=== PATIENT | female | born 1975 | race Caucasian/White ===

== ENCOUNTER 2016-10-13 13:57 | Emergency (ER) | payer OTHER ==
[2016-10-13] VITALS (13 sets, daily range): BP systolic 122–154; BP diastolic 73–93; PULSE 70–88; TEMP 36.9–37.4; O2SAT 96–100; Ht 157.5 cm; Wt 94.8 kg
[~2016-10-13] VITALS: Ht 157.5 cm; Wt 94.8 kg
--- NOTE | 2016-10-13 14:25 | EMERGENCY ROOM VISIT NOTE ---
History Report prepared by Lacey: Jemma Krause Under the Supervision of: Oliver KochO. First contact with patient: 14:06 Chief Complaint: ABNORMAL LABS Stated Complaint: LAB LEVEL EVAL. History of Present Illness The patient is a 41 year old female who presents to the Emergency Room with complaints of an episode of low hemoglobin beginning yesterday. The patient states that she has not been feeling well recently and has had dizziness, lightheadedness, difficulty concentrating, weakness, and some shortness of breath with walking. She reports that she got blood work done yesterday after seeing her doctor and today they called to tell her it was 5.9. She notes that her doctor called her from [place] where she lives and told her she needed to come into the ED immediately despite being on vacation. The patient denies any rectal bleeding, dark stools, chest pain, fevers, cold, abdominal pain, and bloody stools. She notes that she has very heavy periods and is scheduled to get hers at the end of this week. Source of History: patient Onset: yesterday Position: other (global) Symptom Intensity: 5.9 Quality: other (low hemoglobin) Timing: constant Associated Symptoms: + SOB, + weakness, No fevers, No chest pain, No abdominal pain Note: Pt complains of dizziness, lightheadedness, difficulty concentrating. The patient denies any rectal bleeding, dark stools, cold, and bloody stools. Review of Systems See HPI for pertinent positives & negatives. A total of 10 systems reviewed and were otherwise negative. Past Medical & Surgical Medical Problems: (1) No Known Active Medical Problems Family History No pertinent family history stated. Social History Marital Status: Housing Status: lives with family Occupation Status: employed Current/Historical Medications Scheduled Omeprazole (Prilosec), 20 MG PO HS Multivit-Min W/Fe-Fa ( And Iron), 1 TAB PO BID Allergies Coded Allergies: NO KNOWN DRUG ALLERGIES (Verified Allergy, Unknown, none, 10/13/16) No Known Food Allergy (Verified Allergy, Unknown, none, 10/13/16) Physical Exam Vital Signs Date Time Temp Pulse Resp B/P (MAP) Pulse Ox O2 Delivery O2 Flow Rate FiO2 10/13/16 19:45 37.0 78 18 142/93 98 10/13/16 19:00 129/82 10/13/16 18:45 37.4 85 18 154/86 99 10/13/16 18:14 37.1 85 20 136/83 98 10/13/16 17:44 37.3 88 20 129/78 99 10/13/16 17:00 Room Air 10/13/16 16:54 98 20 129/86 99 10/13/16 16:20 100 Room Air 10/13/16 14:36 86 10/13/16 14:05 36.7 98 18 145/88 100 Room Air Physical Exam GENERAL: Patient is awake, alert, and in no acute distress. Patient is resting comfortably and showing no signs of anxiety EYES: The conjunctivae are clear. The pupils are round and reactive. EARS, NOSE, MOUTH AND THROAT: The nose is without any evidence of any deformity. Mucous membranes are moist tongue is midline NECK: The neck is nontender and supple. RESPIRATORY: Normal respiratory effort is noted there is no evidence of wheezing rhonchi or rales CARDIOVASCULAR: Regular rate and rhythm noted there no murmurs rubs or gallops normal S1 normal S2 GASTROINTESTINAL: The abdomen is soft. Bowel sounds are present in all quadrants. Abdomen is nontender MUSCULOSKELETAL/EXTREMITIES: There is no evidence of gross deformity full range of motion is noted in the hips and shoulders SKIN: There is no obvious evidence of any rash. There are no petechiae, pallor or cyanosis noted. NEUROLOGIC: Patient is awake alert and oriented x3 Medical Decision & Procedures Laboratory Results 10/13/16 14:24 Red Blood Count 4.49, Mean Corpuscular Volume 54.8, Mean Corpuscular Hemoglobin 13.4, Mean Corpuscular Hemoglobin Concent 24.4, Neutrophils (%) (Auto) 56.1, Lymphocytes (%) (Auto) 35.5, Monocytes (%) (Auto) 6.0, Eosinophils (%) (Auto) 1.6, Basophils (%) (Auto) 0.6, Neutrophils # (Auto) 4.57, Lymphocytes # (Auto) 2.89, Monocytes # (Auto) 0.49, Eosinophils # (Auto) 0.13, Basophils # (Auto) 0.05 10/13/16 14:24 Test 10/13/16 14:24 10/13/16 14:30 10/13/16 14:35 10/13/16 16:14 White Blood Count 8.15 K/uL (4.8-10.8) Red Blood Count 4.49 M/uL (4.2-5.4) Hemoglobin 6.0 g/dL (12.0-16.0) Hematocrit 24.6 % (37-47) Mean Corpuscular Volume 54.8 fL (80-100) Mean Corpuscular Hemoglobin 13.4 pg (25-34) Mean Corpuscular Hemoglobin Concent 24.4 g/dl (32-36) Platelet Count 328 K/uL (130-400) Neutrophils (%) (Auto) 56.1 % Lymphocytes (%) (Auto) 35.5 % Monocytes (%) (Auto) 6.0 % Eosinophils (%) (Auto) 1.6 % Basophils (%) (Auto) 0.6 % Neutrophils # (Auto) 4.57 K/uL (1.4-6.5) Lymphocytes # (Auto) 2.89 K/uL (1.2-3.4) Monocytes # (Auto) 0.49 K/uL (0.11-0.59) Eosinophils # (Auto) 0.13 K/uL (0-0.5) Basophils # (Auto) 0.05 K/uL (0-0.2) RDW Standard Deviation 43.2 fL (36.4-46.3) RDW Coefficient of Variation 22.3 % (11.5-14.5) Immature Granulocyte % (Auto) 0.2 % Immature Granulocyte # (Auto) 0.02 K/uL (0.00-0.02) Large Platelets 1+ Polychromasia 1+ Hypochromasia PRESENT Poikilocytosis PRESENT Absolute Reticulocyte Count 0.12 10^6/uL (0.02-0.10) Percent Reticulocyte Count 2.8 % (0.5-2.0) Prothrombin Time 10.6 SECONDS (9.0-12.0) Prothromb Time International Ratio 1.0 (0.9-1.1) Activated Partial Thromboplast Time 23.5 SECONDS (21.0-31.0) Partial Thromboplastin Ratio 0.9 Est Creatinine Clear Calc Drug Dose 101.6 ml/min Estimated GFR () 108.5 Estimated GFR (Non- 93.6 BUN/Creatinine Ratio 18.5 (10-20) Calcium Level 8.5 mg/dl (8.5-10.1) Total Bilirubin 0.4 mg/dl (0.2-1) Direct Bilirubin < 0.1 mg/dl (0-0.2) Aspartate Amino Transf (AST/SGOT) 14 U/L (15-37) Alanine Aminotransferase (ALT/SGPT) 21 U/L (12-78) Alkaline Phosphatase 83 U/L (45-117) Total Protein 7.1 gm/dl (6.4-8.2) Albumin 3.5 gm/dl (3.4-5.0) Lipase 151 U/L (73-393) Human Chorionic Gonadotropin, Qual NEG (NEG) Bedside Hemoglobin 8.2 g/dl (12.0-16.0) Bedside Hematocrit 24 % (37-47) Bedside Sodium 139 mEq/L (135-144) Bedside Potassium 3.6 mEq/L (3.3-5.0) Bedside Chloride 102 mEq/L (101-112) Bedside Total CO2 23 mEq/l (24-31) Anion Gap 18.0 mmol/L (16-25) Bedside Blood Urea Nitrogen 14 mg/dl (7-18) Bedside Creatinine 0.7 mg/dl (0.6-1.3) Bedside Glucose (other) 135 mg/dl (70-99) Bedside Ionized Calcium (Beatrice) 1.12 mmol/l (1.12-1.32) Urine Color YELLOW Urine Appearance TURBID (CLEAR) Urine pH 5.0 (4.5-7.5) Urine Specific [place] 1.031 (1.000-1.030) Urine Protein NEG (NEG) Urine Glucose (UA) NEG (NEG) Urine Ketones NEG (NEG) Urine Occult Blood NEG (NEG) Urine Nitrite NEG (NEG) Urine Bilirubin NEG (NEG) Urine Urobilinogen NEG (NEG) Urine Leukocyte Esterase NEG (NEG) Urine WBC (Auto) 1-5 /hpf (0-5) Urine RBC (Auto) 0-4 /hpf (0-4) Urine Hyaline Casts (Auto) 1-5 /lpf (0-5) Urine Epithelial Cells (Auto) 10-20 /lpf (0-5) Urine Bacteria (Auto) NEG (NEG) Iron Level 13 mcg/dl (35-150) Total Iron Binding Capacity 436 mcg/dl (250-450) Vitamin B12 Level 595 pg/mL (211-911) Folate 19.03 ng/mL (>5.38) Laboratory results per my review. Medications Administered Medications (Trade) Dose Ordered Sig/Bruce Route Start Time Stop Time Status Last Admin Dose Admin Acetaminophen (Tylenol Tab) 650 mg Q4H PRN PO 10/13/16 16:00 11/12/16 15:59 10/13/16 18:17 650 MG ED Course 1406: The patient was evaluated in room B9. A complete history and physical examination were performed. 1448: I reevaluated and updated the patient. 1517: I discussed the patient's case with Dr. Patterson of [facility]. The patient will be evaluated for further management. 1523: Upon reevaluation, the patient is doing well. I discussed results and treatment plan with the patient. She verbalizes agreement and understanding. I spoke with Dr. Patterson of the [facility]. The patient will be evaluated for further management and care. Medical Decision Differential diagnosis: Etiologies such as metabolic, infection, hypo/hyperglycemia, electrolyte abnormalities, cardiac sources, intracerebral event, toxicologic, neurologic, as well as others were entertained. Nursing notes reviewed. The patient is a 41-year-old female who presented to the emergency department at the request of her primary care physician. The patient is currently driving from [place] to [place]. She's been having problems with generalized weakness lately and had laboratory studies ordered by her primary care physician which were done yesterday. She was called today and told to call an ambulance and come to the emergency department immediately because her hemoglobin was very low. The patient was stable upon arrival and was found have a hemoglobin of 6.0. The patient was typed and screened in the emergency department. I discussed her case with the on-call [facility] hospitalist. They've agreed to evaluate the patient in the emergency department for further management and disposition. The patient does report heavy menstruation and her primary care physician feels that this is the source her anemia at this time. She denied any black tarry or bloody stools. Medication Reconcilliation Current Medication List: was personally reviewed by me Blood Pressure Screening Patient's blood pressure: Normal blood pressure Blood pressure disposition: Did not require urgent referral Consults Time Called: 1515 Consulting Physician: Dr. Patterson - [facility] Returned Call: 1517 I discussed the patient's case with Dr. Patterson of [facility]. The patient will be evaluated for further management. Impression Primary Impression: Symptomatic anemia Scribe Attestation The scribe's documentation has been prepared under my direction and personally reviewed by me in its entirety. I confirm that the note above accurately reflects all work, treatment, procedures, and medical decision making performed by me. Departure Information Dispostion Being Evaluated By Hospitalist Prescriptions Multivit-Min W/Fe-Fa ( AND IRON) 1 Tab Tab 1 TAB PO BID, #120 DOSE Prov: Delfin Patterson M.D. 10/13/16 Patient Instructions My [facility]
[2016-10-13 14:42] LABS: ISTAT CREATININE 0.7 mg/dl (0.6-1.3); ISTAT HEMOGLOBIN 8.2 g/dl (12.0-16.0); ISTAT IONIZED CALCIUM 1.12 mmol/l (1.12-1.32)
[2016-10-13 14:44] LABS: PREG INTERNAL NEGATIVE QC NEG CLEAR BACKGROUND; PREG INTERNAL POSITIVE QC POS CONTROL LINE
[2016-10-13 14:45] LABS: PARTIAL THROMBOPLASTIN RATIO 0.9; PROTHROMBIN TIME (PATIENT) 10.6 SECONDS (9.0-12.0)
[2016-10-13 14:50] LABS: URINE APPEARANCE TURBID (CLEAR); URINE BILIRUBIN NEG (NEG); URINE COLOR YELLOW; URINE NITRITE NEG (NEG); URINE SPECIFIC GRAVITY 1.031 (1.000-1.030); UROBILINOGEN NEG (NEG)
[2016-10-13 14:51] LABS: ALT/SGPT 21 U/L (12-78); AST/SGOT 14 U/L (15-37); BLOOD UREA NITROGEN 15 mg/dl (7-18); BUN/CREATININE RATIO 18.5 (10-20); CALCIUM 8.5 mg/dl (8.5-10.1); CARBON DIOXIDE 25 mmol/L (21-32); CHLORIDE 105 mmol/L (98-107); CREATININE 0.79 mg/dl (0.60-1.20); GLUCOSE 128 mg/dl (70-99); POTASSIUM 3.5 mmol/L (3.5-5.1); SODIUM 138 mmol/L (136-145)
[2016-10-13 14:52] LABS: HEMATOCRIT 24.6 % (37-47); MEAN CELL VOLUME 54.8 fL (80-100); MEAN CORPUSCULAR HEMOGLOBIN 13.4 pg (25-34); MEAN CORPUSCULAR HGB CONC 24.4 g/dl (32-36); PLATELET COUNT 328 K/uL (130-400); RED BLOOD COUNT 4.49 M/uL (4.2-5.4); WHITE BLOOD COUNT 8.15 K/uL (4.8-10.8)
[2016-10-13 14:54] LABS: ALKALINE PHOSPHATASE 83 U/L (45-117)
[2016-10-13 14:58] LABS: MANUAL MICROSCOPIC REQUIRED? NO; REVIEW REQ? NO
[2016-10-13 15:05] LABS: BASO % 0.6 %; BASO ABS # 0.05 K/uL (0-0.2); COMPLETE YES; EOS % 1.6 %; HYPOCHROMIA PRESENT; IG% 0.2 %; LARGE PLATELETS 1+; LYMPH % 35.5 %; LYMPH ABS # 2.89 K/uL (1.2-3.4); NEUT % 56.1 %; POIKILOCYTOSIS PRESENT; POLYCHROMASIA 1+
[2016-10-13] MEDS ORDERED: PRLSR20 PO (15:20)
[2016-10-13] MEDS ORDERED: PRENTAB89 PO (15:58)
--- NOTE | 2016-10-13 15:59 | Discharge Instructions ---
Discharge Instructions Date of Service Oct 13, 2016. Admission Reason for Admission: Lab Level Eval. Discharge Discharge Diagnosis / Problem: iron deficiency anemia Discharge Goals Goal(s): Therapeutic intervention Activity Recommendations Activity Limitations: resume your previous activity . Current Hospital Diet Patient's current hospital diet: Discharge Diet Recommended Diet: Regular Diet Pending Studies Studies pending at discharge: no Medical Emergencies . Who to Call and When: Medical Emergencies: If at any time you feel your situation is an emergency, please call 911 immediately. . Non-Emergent Contact Non-Emergency issues call your: Primary Care Provider Call Non-Emergent contact if: temperature is above 101, your pain is unusual for you . . "Provider Documentation" section prepared by Delfin Patterson. . VTE Core Measure Inpt VTE Proph given/why not?: Treatment not indicated
[2016-10-13] MEDS ORDERED: ALUMINUM/MAGNESIUM/SIMETH (MAALOX MAX) 30 ML UDC PO PRN (16:00)
[2016-10-13] MEDS ORDERED: ACETAMINOPHEN 325 MG TAB PO PRN (16:00)
[2016-10-13] MEDS ORDERED: ONDANSETRON INJ 2 MG/ML 2 ML VIAL IV PRN (16:00)
--- NOTE | 2016-10-13 16:16 | History and Physical ---
History & Physical Date & Time of Service: Oct 13, 2016 at 16:12 Chief Complaint: Lab Level Eval. Primary Care Physician: No Doctor, Assigned History of Present Illness Patient is a 41-year-old female who was called by her primary care physician regarding outpatient blood work with a hemoglobin of 5.9. On retake checked was 6.0. She is recommended to come to the hospital for evaluation. She gives a history of having some increasing dyspnea on exertion increased fatigue disconnected feeling in her head however she's had no chest pain with any of this nor palpitations. Next She has known very heavy menses she's had this for some time she's considering a uterine ablation. She was known also be iron deficient but her doctor said taking iron would not be of much help. She is markedly microcytic on intake blood work. Her and her family are traveling to [place]. She is agreeable to transfusion at this time and will follow-up with her primary care physician. Family History Patient has a family history of iron deficiency anemia Social History Smoking Status: Never Smoker Marital Status: Occupational Status: employed Allergies Coded Allergies: NO KNOWN DRUG ALLERGIES (Verified Allergy, Unknown, none, 10/13/16) No Known Food Allergy (Verified Allergy, Unknown, none, 10/13/16) Home Medications Scheduled Omeprazole (Prilosec), 20 MG PO HS Multivit-Min W/Fe-Fa ( And Iron), 1 TAB PO BID Review of Systems ROS: well nourished well developed patient has marked fatigue and sleeps often No double vision blurry vision No problems with speech or swallowing patient has a craving for ice No palpitations, chest pain or pressure No Wheezing patient has dyspnea on exertion No abdominal pain nausea vomiting diarrhea changes in appetite or weight No burning urine urine frequency or changes in color No focal joint pain or muscle pain No skin rashes or oral lesions No unusual bruising but patient has very heavy menstrual bleeding No focused back pain or numbness or loss of strength No changes in memory or confusion but at times feels disconnected Physical Exam Vital Signs Date Time Temp Pulse Resp B/P (MAP) Pulse Ox O2 Delivery O2 Flow Rate FiO2 10/13/16 14:36 86 10/13/16 14:05 36.7 98 18 145/88 100 Room Air General Appearance: WD/WN, no apparent distress Head: normocephalic, atraumatic Eyes: PERRL, EOMI ENT: hearing grossly normal, pharynx normal Neck: supple, no JVD Respiratory/Chest: chest non-tender, lungs clear, normal breath sounds Cardiovascular: regular rate, rhythm, no murmur Abdomen/GI: normal bowel sounds, non tender, soft Back: no CVA tenderness, normal range of motion Extremities/Musculoskelatal: normal range of motion, + pedal edema (trace) Neurologic/Psych: alert, oriented x 3 Skin: + pertinent finding (patient has actually good palmar erythema) Diagnostics Laboratory Results Results Past 24 Hours Test 10/13/16 14:24 10/13/16 14:30 10/13/16 14:35 10/13/16 15:26 Range/Units White Blood Count 8.15 4.8-10.8 K/uL Red Blood Count 4.49 4.2-5.4 M/uL Hemoglobin 6.0 12.0-16.0 g/dL Hematocrit 24.6 37-47 % Mean Corpuscular Volume 54.8 80-100 fL Mean Corpuscular Hemoglobin 13.4 25-34 pg Mean Corpuscular Hemoglobin Concent 24.4 32-36 g/dl Platelet Count 328 130-400 K/uL Neutrophils (%) (Auto) 56.1 % Lymphocytes (%) (Auto) 35.5 % Monocytes (%) (Auto) 6.0 % Eosinophils (%) (Auto) 1.6 % Basophils (%) (Auto) 0.6 % Neutrophils # (Auto) 4.57 1.4-6.5 K/uL Lymphocytes # (Auto) 2.89 1.2-3.4 K/uL Monocytes # (Auto) 0.49 0.11-0.59 K/uL Eosinophils # (Auto) 0.13 0-0.5 K/uL Basophils # (Auto) 0.05 0-0.2 K/uL RDW Standard Deviation 43.2 36.4-46.3 fL RDW Coefficient of Variation 22.3 11.5-14.5 % Immature Granulocyte % (Auto) 0.2 % Immature Granulocyte # (Auto) 0.02 0.00-0.02 K/uL Large Platelets 1+ Polychromasia 1+ Hypochromasia PRESENT Poikilocytosis PRESENT Absolute Reticulocyte Count 0.12 0.02-0.10 10^6/uL Percent Reticulocyte Count 2.8 0.5-2.0 % Prothrombin Time 10.6 9.0-12.0 SECONDS Prothromb Time International Ratio 1.0 0.9-1.1 Activated Partial Thromboplast Time 23.5 21.0-31.0 SECONDS Partial Thromboplastin Ratio 0.9 Sodium Level 138 136-145 mmol/L Potassium Level 3.5 3.5-5.1 mmol/L Chloride Level 105 98-107 mmol/L Carbon Dioxide Level 25 21-32 mmol/L Anion Gap 8.0 18.0 16-25 mmol/L Blood Urea Nitrogen 15 7-18 mg/dl Creatinine 0.79 0.60-1.20 mg/dl Est Creatinine Clear Calc Drug Dose 101.6 ml/min Estimated GFR () 108.5 Estimated GFR (Non- 93.6 BUN/Creatinine Ratio 18.5 10-20 Random Glucose 128 70-99 mg/dl Calcium Level 8.5 8.5-10.1 mg/dl Total Bilirubin 0.4 0.2-1 mg/dl Direct Bilirubin < 0.1 0-0.2 mg/dl Aspartate Amino Transf (AST/SGOT) 14 15-37 U/L Alanine Aminotransferase (ALT/SGPT) 21 12-78 U/L Alkaline Phosphatase 83 45-117 U/L Total Protein 7.1 6.4-8.2 gm/dl Albumin 3.5 3.4-5.0 gm/dl Lipase 151 73-393 U/L Human Chorionic Gonadotropin, Qual NEG NEG Bedside Hemoglobin 8.2 12.0-16.0 g/dl Bedside Hematocrit 24 37-47 % Bedside Sodium 139 135-144 mEq/L Bedside Potassium 3.6 3.3-5.0 mEq/L Bedside Chloride 102 101-112 mEq/L Bedside Total CO2 23 24-31 mEq/l Bedside Blood Urea Nitrogen 14 7-18 mg/dl Bedside Creatinine 0.7 0.6-1.3 mg/dl Bedside Glucose (other) 135 70-99 mg/dl Bedside Ionized Calcium (Beatrice) 1.12 1.12-1.32 mmol/l Urine Color YELLOW Urine Appearance TURBID CLEAR Urine pH 5.0 4.5-7.5 Urine Specific [place] 1.031 1.000-1.030 Urine Protein NEG NEG Urine Glucose (UA) NEG NEG Urine Ketones NEG NEG Urine Occult Blood NEG NEG Urine Nitrite NEG NEG Urine Bilirubin NEG NEG Urine Urobilinogen NEG NEG Urine Leukocyte Esterase NEG NEG Urine WBC (Auto) 1-5 0-5 /hpf Urine RBC (Auto) 0-4 0-4 /hpf Urine Hyaline Casts (Auto) 1-5 0-5 /lpf Urine Epithelial Cells (Auto) 10-20 0-5 /lpf Urine Bacteria (Auto) NEG NEG Impression Assessment and Plan Iron deficiency anemia from heavy menstrual bleeding Patient will be transfused 2 units packed red blood cells, electronic prescription was sent to [facility] for vitamins be taken twice a day, I encouraged her to follow up as soon as possible to primary care physician [place] Patient's was aware of this. VTE Prophylaxis VTE Risk Assessment Done? Y/N: Yes Risk Level: Low Given or contraindicated: Treatment not indicated
[2016-10-13 16:40] LABS: TOTAL IRON BINDING CAPACITY 436 mcg/dl (250-450)
== END 2016-10-13 22:22 | disposition home or self-care (01) ==
LOC: EDBD 13:57 → C.EDB 14:00 → C.MSW 16:02 → ENRESERV 16:15 → C.EDB 16:56 → C.MSW 16:56 → C.EDB 22:22
DX: D50.0 Iron deficiency anemia secondary to blood loss (chronic) (principal)